=== PATIENT | male | born 1950 | race African-American/Black ===

== ENCOUNTER → 2017-02-03 | Outpatient (CLI) | payer OTHER ==
[2017-02-03 10:55] LABS: BLOOD GAS BASE EXCESS 2.5 mmol/L (-2-2); BLOOD GAS HCO3 27 mmol/L (22-26); BLOOD GAS METHEMOGLOBIN 1.2 % (0-2); BLOOD GAS O2 HGB SATURATION 94 % (90-100); BLOOD GAS OXYGEN CONTENT 18.2 Vol % (12.0-20.0); BLOOD GAS PCO2 41 mmHg (38-42); BLOOD GAS PO2 83 mmHg (61-120); BLOOD GAS TOTAL HGB 13.7 G/DL (12.0-16.0); CRITICAL VALUE NO; DRAW SITE RT RADIAL; FIO2 21 %; NUMBER OF ARTERIAL PUNCTURES 1; STAT NO; TEMP CORR TO 98.6; ULNAR PULSE PRESENT
--- NOTE | 2017-02-06 10:55 | RSPPFT ---
DATE OF PROCEDURE: 02/03/17 COMMENTS: Spirometry shows FVC of 2.4 at 76% of predicted, FEV1 of 1.8 at 72%, FEV1/FVC ratio is decreased. Flow is decreased at FEF 25, FEF 50, FEF 75 and FEF 25-75. There is a good response after bronchodilator treatment. Lung volumes show residual volume is increased. TLC is normal. Diffusion capacity is normal. Flow volume loop indicates terminal airways obstruction. Room air arterial blood gases show pH of 7.42, PCO2 of 41, PO2 of 83, BiCarb of 27 and O2 Saturation at 94%. IMPRESSION: 1. Mild small airways obstructive lung disease. 2. Good response after bronchodilator treatment. 3. Lung volumes show mild hyperinflation. 4. Normal diffusion capacity. 5. Blood gases show normal oxygenation.
== END ==
LOC: HRSP 09:42
PROVIDERS: ATTEND Specialist
DX: R06.00 Dyspnea, unspecified (principal)
CPT/HCPCS: 36600; 82805; 94060; 94726; 94729